=== PATIENT | male | born 1960 | race Caucasian/White ===

== ENCOUNTER 2020-06-16 13:39 | Emergency (ER) | payer BC ==
[2020-06-16] MEDS ORDERED: HYDROmorphone 0.5 MG/0.5 ML Syringe IVPUSH ONE (13:48)
[2020-06-16] MEDS ORDERED: Ticagrelor 90 MG Tab PO ONE (13:52)
[2020-06-16] MEDS ORDERED: Heparin Sodium 5,000 Units/ML Vial IVPUSH ONE (13:53)
[2020-06-16] MEDS ORDERED: Sodium Chloride 0.9% 1,000 ML IV SCH (14:00)
--- NOTE | 2020-06-16 14:04 | EDM.PDOC ---
ED HPI GENERAL MEDICAL PROBLEM - General Chief Complaint: Chest Pain Stated Complaint: heart problems Time Seen by Provider: 06/16/20 13:58 Source of Information: Reports: Patient History Limitations: Reports: No Limitations - History of Present Illness INITIAL COMMENTS - FREE TEXT/NARRATIVE: pt woke up with heart burn this am. He went to work. He was ok in the early part of the day and then he developed left sided chest pressure and left arm pain. He was not sob. Onset: Today, Sudden Duration: Hour(s): Location: Reports: Chest, Upper Extremity, Left Associated Symptoms: Reports: Chest Pain, Diaphoresis, Weakness Chest Pain Score (Numeric/FACES): 4 - Related Data Allergies Allergy/AdvReac Type Severity Reaction Status Date / Time No Known Allergies Allergy Verified 06/16/20 13:45 Home Meds: Home Meds clonazePAM [Clonazepam] 1 mg PO BID 10/13/18 [History] Past Medical History HEENT History: Reports: Impaired Vision Musculoskeletal History: Reports: Fracture Psychiatric History: Reports: Panic Attack - Past Surgical History Cardiovascular Surgical History: Reports: Other (See Below) Other Cardiovascular Surgeries/Procedures: aortic bifemoral bypass GI Surgical History: Reports: Appendectomy Musculoskeletal Surgical History: Reports: Other (See Below) Other Musculoskeletal Surgeries/Procedures:: right tibial plateau fracture repair Social & Family History - Tobacco Use Smoking Status *Q: Heavy Tobacco Smoker Years of Tobacco use: 40 Packs/Tins Daily: 1 - Caffeine Use Caffeine Use: Reports: Coffee - Recreational Drug Use Recreational Drug Use: No ED ROS GENERAL - Review of Systems Review Of Systems: See Below Constitutional: Reports: No Symptoms HEENT: Reports: No Symptoms Respiratory: Reports: No Symptoms Cardiovascular: Reports: Chest Pain, Other (left arm pain. ) Endocrine: Reports: No Symptoms GI/Abdominal: Reports: No Symptoms, Other ( earlier today he had heart burn. ) : Reports: No Symptoms Musculoskeletal: Reports: No Symptoms Skin: Reports: No Symptoms Neurological: Reports: No Symptoms Psychiatric: Reports: Anxiety ED EXAM, GENERAL - Physical Exam Exam: See Below Free Text/Narrative:: pt arrived with a history of developing chest pain while at work. This was persistent and the ambulance was called. Exam Limited By: No Limitations General Appearance: Alert, Anxious, Moderate Distress Ears: Normal TMs Nose: Normal Inspection Throat/Mouth: Normal Inspection Head: Atraumatic Neck: Normal Inspection Respiratory/Chest: No Respiratory Distress Cardiovascular: Regular Rate, Rhythm, Other (pt had changes of an acute inferior infarct. ) GI/Abdominal: Soft, Non-Tender (Male) Exam: Deferred Rectal (Males) Exam: Deferred Back Exam: Normal Inspection Extremities: Normal Inspection Neurological: Alert, Oriented, Normal Cognition Psychiatric: Anxious Course - Vital Signs Last Recorded V/S: Last Vital Signs Temp 36.1 C 06/16/20 13:42 Pulse 61 06/16/20 13:48 Resp 14 06/16/20 13:42 BP 98/61 06/16/20 13:48 Pulse Ox 95 06/16/20 13:48 - Orders/Labs/Meds Orders: Active Orders 24 hr Category Date Time Status EKG Documentation Completion [RC] ASDIRECTED Care 06/16/20 13:50 Ordered Chest 1V Frontal [CR] Stat Exams 06/16/20 13:50 Ordered COMPREHENSIVE METABOLIC PN,CMP [CHEM] Urgent Lab 06/16/20 13:49 Ordered Sodium Chloride 0.9% [Normal Saline] 1,000 ml Med 06/16/20 14:00 Ordered IV ASDIRECTED EKG 12 Lead [EK] Routine Ther 06/16/20 13:49 Ordered Medication Orders Sodium Chloride (Normal Saline) 1,000 mls @ 100 mls/hr IV ASDIRECTED [facility] Labs: Laboratory Tests 06/16/20 Range/Units 13:53 WBC 8.0 (4.5-11.0) K/uL RBC 4.80 (4.30-5.90) M/uL Hgb 15.2 H (12.0-15.0) g/dL Hct 43.6 (40.0-54.0) % MCV 91 (80-98) fL MCH 32 H (27-31) pg MCHC 35 (32-36) % Plt Count 159 (150-400) K/uL Neut % (Auto) 45 (36-66) % Lymph % (Auto) 43 (24-44) % [place] % (Auto) 9 H (2-6) % Eos % (Auto) 2 (2-4) % Baso % (Auto) 1 (0-1) % Meds: Medications Generic Name Dose Route Start Last Admin Trade Name Freq PRN Reason Stop Dose Admin Sodium Chloride 1,000 mls @ 100 mls/hr 06/16/20 14:00 Normal Saline IV ASDIRECTED ETHEL Discontinued Medications Generic Name Dose Route Start Last Admin Trade Name Justina PRN Reason Stop Dose Admin Heparin Sodium (Porcine) 4,000 units 06/16/20 13:53 06/16/20 13:56 Heparin Sodium IVPUSH 06/16/20 13:54 4,000 units ONETIME ONE Administration Hydromorphone HCl 0.5 mg 06/16/20 13:48 06/16/20 13:56 Dilaudid IVPUSH 06/16/20 13:49 0.5 mg ONETIME ONE Administration Ticagrelor 180 mg 06/16/20 13:52 06/16/20 13:57 Brilinta PO 06/16/20 13:53 180 mg ONETIME ONE Administration - Re-Assessments/Exams Free Text/Narrative Re-Assessment/Exam: 06/16/20 14:06 ekg shows evidence of a inferior infarct. He had pain at a 4. He had 3 sprays of nitro and had a nitro drip at 10 mics. He had fluids running at 100. He had dilaudid .5 and his bp did go down some . The nitro drip was stopped and a bous of fluid was givem/ He was given 4000 units of heparin and brilinta 180 mg. His pain was at a 2. Departure - Departure Time of Disposition: 14:09 Disposition: DC/Tfer to Acute Hospital 02 Reason for Transfer *Q: Primary PCI Indicated Condition: Fair Clinical Impression: Acute inferior myocardial infarction Referrals: PCP,None [Primary Care Provider] - Care Plan Goals: transfer by air to [facility]. Sepsis Event Note (ED) - Evaluation Sepsis Screening Result: No Definite Risk - Focused Exam Vital Signs: Vital Signs Temp Pulse Resp BP Pulse Ox 06/16/20 13:48 61 98/61 95 06/16/20 13:42 36.1 C 95 14 102/64 95 - My Orders Last 24 Hours: My Active Orders 06/16/20 13:49 COMPREHENSIVE METABOLIC PN,CMP [CHEM] Urgent EKG 12 Lead [EK] Routine 06/16/20 13:50 EKG Documentation Completion [RC] ASDIRECTED Chest 1V Frontal [CR] Stat 06/16/20 14:00 Sodium Chloride 0.9% [Normal Saline] 1,000 ml IV ASDIRECTED - Assessment/Plan Last 24 Hours: My Active Orders 06/16/20 13:49 COMPREHENSIVE METABOLIC PN,CMP [CHEM] Urgent EKG 12 Lead [EK] Routine 06/16/20 13:50 EKG Documentation Completion [RC] ASDIRECTED Chest 1V Frontal [CR] Stat 06/16/20 14:00 Sodium Chloride 0.9% [Normal Saline] 1,000 ml IV ASDIRECTED
--- NOTE | 2020-06-16 15:13 | CR ---
CHEST: Portable 06/16/2020 at 1:59 PM CLINICAL HISTORY:Chest pain COMPARISON:None FINDINGS: The heart size, pulmonary vascularity and hilar structures are normal. No infiltrate effusion or pneumothorax is seen. There are atherosclerotic changes in the aorta. IMPRESSION: No acute cardiopulmonary process.
== END 2020-06-16 14:05 ==
LOC: JP.ED 13:39
DX: I21.19 ST elevation (STEMI) myocardial infarction involving other coronary artery of inferior wall (principal); F41.0 Panic disorder [episodic paroxysmal anxiety]; F17.290 Nicotine dependence, other tobacco product, uncomplicated; Z90.49 Acquired absence of other specified parts of digestive tract; Z98.890 Other specified postprocedural states; Z79.899 Other long term (current) drug therapy
CPT/HCPCS: 36415; 71045; 80053; 84484; 85025; 93005; 96374; 96375; 99285; A9270; J1170; J1644; 93010

== ENCOUNTER 2020-11-24 03:04 | Emergency (ER) | payer BC ==
[2020-11-24] MEDS ORDERED: Aspirin 81 MG Tab.Chew PO ONE (03:51)
[2020-11-24] MEDS ORDERED: Alum Hydrox/Mag Hydrox/Simeth 15 ML, Lidocaine 2% 15 ML PO ONE ×2 (03:52)
--- NOTE | 2020-11-24 03:54 | EDM.PDOC ---
ED HPI GENERAL MEDICAL PROBLEM - General Chief Complaint: General Stated Complaint: MEDICAL VIA [facility] Time Seen by Provider: 11/24/20 03:48 Source of Information: Reports: Patient, Old Records History Limitations: Reports: No Limitations - History of Present Illness INITIAL COMMENTS - FREE TEXT/NARRATIVE: 60 yo male with a pHx of an GA and who is still smoking presents with about 8 hrs of low sternal "hollowness" and a slight increase in his heart rate. Feels just a little SOB. No diaphoresis or calf pain. Onset: Gradual Onset Date: 11/23/20 Onset Time: 20:00 Duration: Constant Location: Reports: Chest (low central) Quality: Reports: Other (feels hollow) Severity: Mild Improves with: Reports: None Worsens with: Reports: None Context: Reports: Other (See HPI) Associated Symptoms: Reports: Shortness of Breath (minimal) Treatments [employer]: Reports: Other (see below) (none) - Related Data Allergies Allergy/AdvReac Type Severity Reaction Status Date / Time ibuprofen [From Motrin] Allergy Cannot Verified 11/24/20 03:13 Remember Home Meds: Home Meds clonazePAM [Clonazepam] 1 mg PO BID 10/13/18 [History] Aspirin [Low Dose Aspirin EC] 81 mg PO DAILY 11/24/20 [History] Metoprolol Succinate [Toprol Xl] 25 mg PO DAILY 11/24/20 [History] Ticagrelor [Brilinta] 90 mg PO BID 11/24/20 [History] atorvaSTATin [Lipitor] 80 mg pe PO PCDINNER 11/24/20 [History] Past Medical History HEENT History: Reports: Impaired Vision Cardiovascular History: Reports: GA Gastrointestinal History: Reports: None Musculoskeletal History: Reports: Fracture Psychiatric History: Reports: Anxiety, Panic Attack, Other (See Below) Other Psychiatric History: recovering alcoholic - Past Surgical History Head Surgeries/Procedures: Reports: None HEENT Surgical History: Reports: None Cardiovascular Surgical History: Reports: Coronary Artery Stent, Other (See Below) Other Cardiovascular Surgeries/Procedures: aortic bifemoral bypass GI Surgical History: Reports: Appendectomy Musculoskeletal Surgical History: Reports: Other (See Below) Other Musculoskeletal Surgeries/Procedures:: right tibial plateau fracture repair Dermatological Surgical History: Reports: None Social & Family History - Tobacco Use Tobacco Use Status *Q: Current Every Day Tobacco User Years of Tobacco use: 49 Packs/Tins Daily: 0.5 - Caffeine Use Caffeine Use: Reports: Coffee - Recreational Drug Use Recreational Drug Use: No ED ROS GENERAL - Review of Systems Review Of Systems: See Below Constitutional: Reports: No Symptoms HEENT: Reports: No Symptoms Respiratory: Reports: Shortness of Breath (minimal) Cardiovascular: Reports: Chest Pain ("hollowness") GI/Abdominal: Reports: No Symptoms : Reports: No Symptoms Musculoskeletal: Reports: No Symptoms Skin: Reports: No Symptoms Neurological: Reports: No Symptoms ED EXAM, GENERAL - Physical Exam Exam: See Below Exam Limited By: No Limitations General Appearance: Alert, WD/WN, No Apparent Distress Eye Exam: Bilateral Eye: Normal Inspection Ears: Normal External Exam, Normal Canal, Hearing Grossly Normal Ear Exam: Bilateral Ear: Auricle Normal, Canal Normal Nose: Normal Inspection, No Blood Throat/Mouth: Normal Inspection, Normal Lips, Normal Oropharynx, Normal Voice, No Airway Compromise Head: Atraumatic, Normocephalic Neck: Normal Inspection Respiratory/Chest: No Respiratory Distress, Lungs Clear, Normal Breath Sounds, No Accessory Muscle Use Cardiovascular: Regular Rate, Rhythm, No Edema GI/Abdominal: Normal Bowel Sounds, Soft, Non-Tender, No Distention Back Exam: Normal Inspection Extremities: Normal Inspection Neurological: Alert, Oriented, CN II-XII Intact, Normal Cognition, No Motor/Sensory Deficits Psychiatric: Normal Affect, Normal Mood Skin Exam: Warm, Dry, Intact, Normal Color, No Rash #1 Interpretation EKG Date: 11/24/20 Time: 03:55 Rhythm: NSR Rate (Beats/Min): 78 [place]: Normal P-Wave: Present QRS: Normal ST-T: Normal QT: Normal Comparison: Change From Previous EKG (inferior ST elevation has resolved.) EKG Interpretation Comments: small Q's in inferior leads. Course - Vital Signs Last Recorded V/S: Last Vital Signs Temp 37.3 C 11/24/20 03:08 Pulse 82 11/24/20 03:08 Resp 18 11/24/20 03:08 BP 131/67 11/24/20 03:08 Pulse Ox 94 L 11/24/20 03:08 - Orders/Labs/Meds Orders: Active Orders 24 hr Category Date Time Status Cardiac Monitoring [RC] .As Directed Care 11/24/20 03:47 Active EKG Documentation Completion [RC] ASDIRECTED Care 11/24/20 03:47 Active EKG 12 Lead [EK] Routine Ther 11/24/20 03:46 Ordered Labs: Laboratory Tests 11/24/20 11/24/20 Range/Units 04:00 04:00 D-Dimer, Quantitative 2202.36 H (0.0-500.0) ng/mL Troponin I < 0.017 (0.000-0.056) ng/mL Meds: Medications Discontinued Medications Generic Name Dose Route Start Last Admin Trade Name Justina PRN Reason Stop Dose Admin Aspirin 324 mg 11/24/20 03:51 11/24/20 04:04 Aspirin PO 11/24/20 03:52 324 mg ONETIME ONE Administration Al Hydroxide/Mg Hydroxide 15 0 ml 11/24/20 03:52 11/24/20 04:04 ml/ Lidocaine HCl 15 ml PO 11/24/20 03:53 15 ml ONETIME ONE Administration - Re-Assessments/Exams Free Text/Narrative Re-Assessment/Exam: 11/24/20 04:51 D-dimer elevated and a CT scan offered, he declined this test. Departure - Departure Time of Disposition: 05:00 Disposition: Home, Self-Care 01 Condition: Fair Clinical Impression: Mild anxiety, Tobacco use, Elevated d-dimer - Discharge Information *PRESCRIPTION DRUG MONITORING PROGRAM REVIEWED*: Not Applicable *COPY OF PRESCRIPTION DRUG MONITORING REPORT IN PATIENT SONIA: Not Applicable Instructions: Health Risks of Smoking Referrals: PCP,None [Primary Care Provider] - Forms: ED Department Discharge Additional Instructions: Continue your usual meds. Return as needed. Continue efforts to quit smoking. Sepsis Event Note (ED) - Evaluation Sepsis Screening Result: No Definite Risk - Focused Exam Vital Signs: Vital Signs Temp Pulse Resp BP Pulse Ox 11/24/20 03:08 37.3 C 82 18 131/67 94 L - My Orders Last 24 Hours: My Active Orders 11/24/20 03:46 EKG 12 Lead [EK] Routine 11/24/20 03:47 Cardiac Monitoring [RC] .As Directed EKG Documentation Completion [RC] ASDIRECTED - Assessment/Plan Last 24 Hours: My Active Orders 11/24/20 03:46 EKG 12 Lead [EK] Routine 11/24/20 03:47 Cardiac Monitoring [RC] .As Directed EKG Documentation Completion [RC] ASDIRECTED
== END 2020-11-24 05:12 | disposition home or self-care (01) ==
LOC: JP.ED 03:04
DX: F41.9 Anxiety disorder, unspecified (principal); R79.1 Abnormal coagulation profile; I25.2 Old myocardial infarction; F17.210 Nicotine dependence, cigarettes, uncomplicated; Z88.6 Allergy status to analgesic agent; Z79.82 Long term (current) use of aspirin; Z79.899 Other long term (current) drug therapy
CPT/HCPCS: 36415; 84484; 85379; 93005; 93010; 99283; 99285; A9270